=== PATIENT | male | born 1970 | race Caucasian/White ===

== ENCOUNTER 2018-07-19 04:34 | Emergency (ER) | payer SELFPAY ==
[~2018-07-19] VITALS: Wt 79.1 kg
[2018-07-19] MEDS ORDERED: SOD CHLORIDE 0.9% 1,000 ML IV ONE (06:00)
[2018-07-19] MEDS ORDERED: ONDANSETRON 4 MG INJ IV STA (06:19)
[2018-07-19] MEDS ORDERED: SODIUM CHLORIDE 0.9% 1L BAG IV* STA (06:19)
--- NOTE | 2018-07-19 06:36 | ERD ---
ER Documentation Chief Complaint Chief Complaint SOB X'S 2 DAYS, HEROIN WITHDRAWL HPI This is a 47-year-old male who presents with shortness of breath the last 2 days, associated with a cough. Patient denies fever, he endorses generalized body aches, feels like he is withdrawing from heroin, he has no chest pain, denies any leg swelling, no rash. The patient has not had a fever, he denies leg swelling, he has had no hemoptysis, he has no history of coagulopathy, no history of DVT or PE. ROS All systems reviewed and are negative except as per history of present illness. Allergies Allergies: Coded Allergies: No Known Allergy (Unverified , 07/19/18) PMhx/Soc Medical and Surgical Hx: pt denies Surgical Hx History of Surgery: No Anesthesia Reaction: No Hx Neurological Disorder: No Hx Respiratory Disorders: No Hx Cardiac Disorders: No Hx Psychiatric Problems: No Hx Miscellaneous Medical Probl: Yes (heroine abuse) Hx Alcohol Use: Yes Hx Substance Use: Yes (heroine) Hx Tobacco Use: Yes Smoking Status: Current every day smoker Physical Exam Vitals Vital Signs Date Temp Pulse Resp B/P (MAP) Pulse Ox O2 O2 Flow FiO2 Time Delivery Rate 07/19/18 98.0 96 15 106/70 97 Room Air 06:26 (82) 07/19/18 99.1 120 20 135/60 96 04:44 (85) Physical Exam Const: Disheveled appearing, calm cooperative, no acute distress Head: Atraumatic Eyes: Normal Conjunctiva, pupils equal round reactive to light ENT: Normal External Ears, Nose and Mouth. Neck: Full range of motion. No meningismus. Resp: Clear to auscultation bilaterally Cardio: Regular rate and rhythm, no murmurs, no JVD Abd: Soft, non tender, non distended, no rebound or guarding. Normal bowel sounds Skin: No petechiae or rashes Back: No midline or flank tenderness Ext: No cyanosis, or edema Neur: Awake and alert Psych: Normal Mood and Affect Result Diagram: 07/19/18 [id number] Results 24 hrs Laboratory Tests Test 07/19/18 06:02 07/19/18 06:56 White Blood Count 23.2 10^3/ul Red Blood Count 4.21 10^6/ul Hemoglobin 12.6 g/dl Hematocrit 36.9 % Mean Corpuscular Volume 87.6 fl Mean Corpuscular Hemoglobin 29.9 pg Mean Corpuscular Hemoglobin Concent 34.1 g/dl Red Cell Distribution Width 16.7 % Platelet Count 257 10^3/UL Mean Platelet Volume 9.4 fl Immature Granulocytes % 0.500 % Neutrophils % 87.1 % Lymphocytes % 4.7 % Monocytes % 7.5 % Eosinophils % 0.0 % Basophils % 0.2 % Nucleated Red Blood Cells % 0.0 /100WBC Immature Granulocytes # 0.120 10^3/ul Neutrophils # 20.2 10^3/ul Lymphocytes # 1.1 10^3/ul Monocytes # 1.7 10^3/ul Eosinophils # 0.0 10^3/ul Basophils # 0.0 10^3/ul Nucleated Red Blood Cells # 0.0 10^3/ul Sodium Level 140 mmol/L Potassium Level 4.0 mmol/L Chloride Level 105 mmol/L Carbon Dioxide Level 28 mmol/L Anion Gap 7 Blood Urea Nitrogen 14 mg/dl Creatinine 0.77 mg/dl Est Glomerular Filtrat Rate mL/min > 60 mL/min Glucose Level 120 mg/dl Calcium Level 9.3 mg/dl Troponin I < 0.012 ng/ml POC Venous Lactate 0.6 mmol/L Current Medications Medications Dose Sig/Kelly Start Time Status Last (Trade) Ordered Route PRN Stop Time Admin Dose Reason Admin Sodium 1,000 ml @ Q1H ONCE 07/19/18 DC 07/19/18 Chloride 1,000 mls/hr IV 06:00 06:14 07/19/18 06:59 Sodium 2,370 ml BOLUS OVER 2 07/19/18 DC 07/19/18 Chloride HOURS STAT 07:11 (NS) IV* 07/19/18 07:07 Ondansetron 4 mg ONCE STAT 07/19/18 DC HCl (Zofran IV 06:19 Inj) 07/19/18 07:07 Lorazepam 1 mg ONCE ONCE 07/19/18 (Ativan) PO 07:30 07/19/18 07:31 Procedures/MDM 47-year-old male presents for evaluation of body aches, generalized malaise. Patient had initially presented tachycardic, by the time of my evaluation, his vital signs normalized, he had no evidence of fever during his entire ER visit. I did note a leukocytosis, which I suspect is most likely reactive in the setting of heroin withdrawal because he otherwise has no evidence of infection, he has no evidence of sepsis or severe sepsis. His exam was overall but 9, he was alert and oriented x4, he was ambulatory with steady gait, a cardiac workup was initiated because in part I considered endocarditis in setting of IV drug use, although he had no cardiopulmonary symptoms. I discussed findings with patient, who felt comfortable with discharge plan of care, he endorsed having a place to live and stay, at discharge he was in no distress. Chest X-ray 1V Interpreted by me: Soft Tissue: No acute abnormalities Bones: No acute abnormalities Mediastinum/Cardiac Silhouette/Lungs: No acute abnormalities EKG: Rate/Rhythm: Normal Sinus Rhythm QRS, ST, T-waves: No changes consistent w/ acute ischemia Impression: No evidence of ischemia or arrhythmia Departure Diagnosis: Primary Impression: Heroin withdrawal Condition: Stable TUTU LOYA MD Jul 19, 2018 06:36
[2018-07-19] MEDS ORDERED: LORAZEPAM 1 MG TAB PO ONE (07:30)
[2018-07-19 08:40] VITALS: BP 118/76; PULSE 89; RESP 18
== END 2018-07-19 08:40 | disposition home or self-care (01) ==
LOC: E/R 04:34
DX: F11.23 Opioid dependence with withdrawal (principal); F17.210 Nicotine dependence, cigarettes, uncomplicated; R07.9 Chest pain, unspecified
CPT/HCPCS: 36415; 71045; 80048; 81003; 83605; 84484; 85025; 87040; 87086; 87400; 93005; 99285; J7030